=== PATIENT | male | born 1990 | race Caucasian/White ===

== ENCOUNTER 2017-10-18 21:59 | Emergency (ER) | payer BC ==
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
== END 2017-10-18 23:46 | disposition home or self-care (01) ==
LOC: MW.ED 21:59
DX: S06.0X9A Concussion with loss of consciousness of unspecified duration, initial encounter (principal); S80.811A Abrasion, right lower leg, initial encounter; V86.99XA Unspecified occupant of other special all-terrain or other off-road motor vehicle injured in nontraffic accident, initial encounter; M25.531 Pain in right wrist
CPT/HCPCS: 70450; 70450-26; 72125; 72125-26; 73100-26-RT; 73100-RT; 73590-26-RT; 73590-RT; 99284-25

== ENCOUNTER 2019-04-12 12:36 | Emergency (ER) | payer BC ==
--- NOTE | 2019-04-12 12:39 | EDM.PDOC ---
ED HPI GENERAL MEDICAL PROBLEM - General Stated Complaint: RIGHT HAND LACERATION Time Seen by Provider: 04/12/19 12:37 Source of Information: Reports: Patient History Limitations: Reports: No Limitations - History of Present Illness INITIAL COMMENTS - FREE TEXT/NARRATIVE: HISTORY AND PHYSICAL: History of present illness: Patient is a 28-year-old male who presents to the emergency room with complaints of a superficial laceration to his right palmar surface near the base of his thumb. He states he was not somewhat worried about the laceration but noted he needed a tetanus update. He offers no other concerns or complaints at this time. Review of systems: As per history of present illness and below otherwise all systems reviewed and negative. Past medical history: As per history of present illness and as reviewed below otherwise noncontributory. Surgical history: As per history of present illness and as reviewed below otherwise noncontributory. Social history: See social history for further information Family history: As per history of present illness and as reviewed below otherwise noncontributory. Physical exam: General: Well-developed and well-nourished 28-year-old male. Alert and oriented. Nontoxic appearing and in no acute distress. HEENT: Atraumatic, normocephalic, pupils equal and reactive bilaterally, negative for conjunctival pallor or scleral icterus, mucous membranes moist, trachea midline. No drooling or trismus noted. No meningeal signs. No hot potato voice noted. Lungs: Clear to auscultation, breath sounds equal bilaterally. Heart: S1S2, regular rate and rhythm without overt murmur Skin: Superficial 1 cm laceration to the palmar surface of his right hand near the base of his thumb. Otherwise skin is intact, warm, dry. No lesions or rashes noted. Extremities: Moves all extremities per self without difficulty or deficits, negative for cords or calf pain. Neurovascular unremarkable. Neuro: Awake, alert, oriented. Cranial nerves II through XII unremarkable. Cerebellum unremarkable. Motor and sensory unremarkable throughout. Exam nonfocal. Notes: Wound care was provided. Tetanus has been updated. Supportive care measures were reviewed and discussed. Voices understanding and is agreeable to plan of care. Denies any further questions or concerns at this time. Diagnostics: None Therapeutics: Tdap, wound care Prescription: None Impression: Laceration Plan: 1. Keep the area clean and dry. Continue to monitor for signs of infection. 2. Tylenol and/or ibuprofen as needed for pain management. 3. Please follow-up with your primary care provider in the next 1-2 days. Return to the ED as needed and as discussed. Definitive disposition and diagnosis as appropriate pending reevaluation and review of above. right hand Pain Score (Numeric/FACES): 1 - Related Data Allergies Allergy/AdvReac Type Severity Reaction Status Date / Time No Known Allergies Allergy Verified 03/29/18 18:32 Home Meds: Home Meds . [No Known Home Meds] 10/18/17 [History] Past Medical History - Past Health History Medical/Surgical History: Denies Medical/Surgical History Social & Family History - Family History Family Medical History: Noncontributory ED ROS GENERAL - Review of Systems Review Of Systems: Comprehensive ROS is negative, except as noted in HPI. ED EXAM, GENERAL - Physical Exam Exam: See Below (See dictation) Course - Vital Signs Last Recorded V/S: Last Vital Signs Temp 97.6 F 04/12/19 12:49 Pulse 63 04/12/19 12:49 Resp 16 04/12/19 12:49 BP 109/55 L 04/12/19 12:49 Pulse Ox 99 04/12/19 12:49 - Orders/Labs/Meds Orders: Active Orders 24 hr Category Date Time Status Communication Order [RC] STAT Care 04/12/19 12:52 Ordered Vaccines to be Administered [RC] PER UNIT ROUTINE Care 04/12/19 12:53 Ordered Bacitracin [Bacitracin Oint 1 GM] Med 04/12/19 12:53 Once 1 dose TOP ONETIME ONE Diphth,Pertuss(Acell),Tet Vac [Adacel] Med 04/12/19 12:52 Once 0.5 ml IM .ONCE ONE Departure - Departure Time of Disposition: 12:55 Disposition: Home, Self-Care 01 Clinical Impression: Laceration - Discharge Information Instructions: Laceration Care, Adult, [id number] Additional Instructions: The following information is given to patients seen in the emergency department who are being discharged to home. This information is to outline your options for follow-up care. We provide all patients seen in our emergency department with a follow-up referral. The need for follow-up, as well as the timing and circumstances, are variable depending upon the specifics of your emergency department visit. If you don't have a primary care physician on staff, we will provide you with a referral. We always advise you to contact your personal physician following an emergency department visit to inform them of the circumstance of the visit and for follow-up with them and/or the need for any referrals to a consulting specialist. The emergency department will also refer you to a specialist when appropriate. This referral assures that you have the opportunity for follow-up care with a specialist. All of these measure are taken in an effort to provide you with optimal care, which includes your follow-up. Under all circumstances we always encourage you to contact your private physician who remains a resource for coordinating your care. When calling for follow-up care, please make the office aware that this follow-up is from your recent emergency room visit. If for any reason you are refused follow-up, please contact the [facility] Emergency Department at and asked to speak to the emergency department charge nurse. [facility] [address] [place] [id number] [place] [address] 1. Keep the area clean and dry. Continue to monitor for signs of infection. 2. Tylenol and/or ibuprofen as needed for pain management. 3. Please follow-up with your primary care provider in the next 1-2 days. Return to the ED as needed and as discussed. - My Orders Last 24 Hours: My Active Orders 04/12/19 12:52 Communication Order [RC] STAT Diphth,Pertuss(Acell),Tet Vac [Adacel] 0.5 ml IM .ONCE ONE 04/12/19 12:53 Vaccines to be Administered [RC] PER UNIT ROUTINE Bacitracin [Bacitracin Oint 1 GM] 1 dose TOP ONETIME ONE - Assessment/Plan Last 24 Hours: My Active Orders 04/12/19 12:52 Communication Order [RC] STAT Diphth,Pertuss(Acell),Tet Vac [Adacel] 0.5 ml IM .ONCE ONE 04/12/19 12:53 Vaccines to be Administered [RC] PER UNIT ROUTINE Bacitracin [Bacitracin Oint 1 GM] 1 dose TOP ONETIME ONE
[2019-04-12] MEDS ORDERED: Diphtheria,Pertussis(Acell),Tetanus Vaccine 0.5 ML Syringe IM ONE (12:52)
[2019-04-12] MEDS ORDERED: Bacitracin Oint 1 GM U/D Packet TOP ONE (12:53)
== END 2019-04-12 13:23 | disposition home or self-care (01) ==
LOC: MW.ED 12:36
DX: S61.411A Laceration without foreign body of right hand, initial encounter (principal); Z23 Encounter for immunization; W26.8XXA Contact with other sharp object(s), not elsewhere classified, initial encounter
CPT/HCPCS: 90471; 90715; 99282

== ENCOUNTER 2019-07-28 19:59 | Emergency (ER) | payer BC ==
[2019-07-28] MEDS ORDERED: Atropine/Diphenoxylate 0.025-2.5 MG Tab PO ONE (20:41)
[2019-07-28] MEDS ORDERED: Sodium Chloride 0.9% 1,000 ML IV SCH (20:45)
--- NOTE | 2019-07-28 21:04 | CR ---
Chest: AP view of the chest was obtained. Comparison: No prior chest x-rays available. Heart size and mediastinum are normal. Lungs are clear with no acute parenchymal change. Bony structures are unremarkable. Impression: 1. Nothing acute is appreciated on AP chest x-ray. Diagnostic code #1 Study was dictated in MDT
[2019-07-28 21:32] LABS: BLOOD UREA NITROGEN,BUN 13 mg/dL (7.0-18.0); CARBON DIOXIDE,CO2 28.9 mmol/L (21.0-32.0); CHLORIDE,CL 104 mmol/L (98-107); GLUCOSE RANDOM 90 mg/dL (74-106); POTASSIUM,K 3.7 mmol/L (3.5-5.1); SODIUM,NA 141 mmol/L (136-148)
--- NOTE | 2019-07-28 22:16 | EDM.PDOC ---
ED HPI GENERAL MEDICAL PROBLEM - General Chief Complaint: Gastrointestinal Problem Stated Complaint: vomiting Time Seen by Provider: 07/28/19 19:59 Source of Information: Reports: Patient History Limitations: Reports: No Limitations - History of Present Illness INITIAL COMMENTS - FREE TEXT/NARRATIVE: Presents the emergency room chief complaint of multiple episodes of diarrhea after taking care of his grandfather with C. difficile. Onset: Today Duration: Day(s): Location: Reports: Abdomen Severity: Mild Improves with: Reports: None Worsens with: Reports: None Context: Reports: Sick Contact Associated Symptoms: Reports: No Other Symptoms - Related Data Allergies Allergy/AdvReac Type Severity Reaction Status Date / Time No Known Allergies Allergy Verified 07/28/19 20:24 Home Meds: Home Meds . [No Known Home Meds] 10/18/17 [History] Past Medical History - Past Health History Medical/Surgical History: Denies Medical/Surgical History Social & Family History - Family History Family Medical History: Noncontributory - Tobacco Use Smoking Status *Q: Never Smoker Second Hand Smoke Exposure: No - Caffeine Use Caffeine Use: Reports: Coffee, Energy Drinks, Soda - Recreational Drug Use Recreational Drug Use: No ED ROS GENERAL - Review of Systems Review Of Systems: See Below Constitutional: Reports: No Symptoms HEENT: Reports: No Symptoms Respiratory: Reports: No Symptoms Cardiovascular: Reports: No Symptoms Endocrine: Reports: No Symptoms GI/Abdominal: Reports: Diarrhea : Reports: No Symptoms Musculoskeletal: Reports: No Symptoms Skin: Reports: No Symptoms Neurological: Reports: No Symptoms Psychiatric: Reports: No Symptoms Hematologic/Lymphatic: Reports: No Symptoms Immunologic: Reports: No Symptoms ED EXAM, GI/ABD - Physical Exam Exam: See Below Exam Limited By: No Limitations General Appearance: Alert, WD/WN, No Apparent Distress Eyes: Bilateral: Normal Appearance Ears: Normal External Exam, Normal Canal, Hearing Grossly Normal, Normal TMs Nose: Normal Inspection Throat/Mouth: Normal Inspection, Normal Lips Head: Atraumatic, Normocephalic Neck: Normal Inspection, Supple, Non-Tender Respiratory/Chest: No Respiratory Distress, Lungs Clear Cardiovascular: Normal Peripheral Pulses, Regular Rate, Rhythm, No JVD, No Murmur, No Rub GI/Abdominal Exam: Normal Bowel Sounds, Soft, Non-Tender, No Distention, No Abnormal Bruit, No Mass (Male) Exam: No Hernia, Deferred Extremities: Normal Inspection, Normal Range of Motion, No Pedal Edema Neurological: Alert, Oriented, CN II-XII Intact Psychiatric: Normal Affect, Normal Mood Skin Exam: Warm, Dry, Intact Course - Vital Signs Text/Narrative:: 29-year-old male presents the emergency room with a chief complaint of possible C. difficile. Patient has been taking care of his grandfather who has C. difficile and has had several bouts of diarrhea. Is no fever no chills no abdominal pain. On exam patient was completely normal abdomen soft nontender extremities normal no guarding. She has normal CBC normal electrolytes. Patient was given Lomotil for possible diarrhea. C. difficile was ordered but the lab was unable to do it because the patient had firm stools. In the presence of formed stools doubt that this is C. difficile. We will arrange patient to be followed up with primary care facility clinic so they can order C. difficile at another time when the lab is able to do with a non-formed stool. Diagnosis on this patient will be possible gastroenteritis patient is stable Last Recorded V/S: Last Vital Signs Temp 96.7 F L 07/28/19 20:25 Pulse 92 07/28/19 20:25 Resp 18 07/28/19 20:25 BP 134/73 07/28/19 20:25 Pulse Ox 98 07/28/19 20:25 - Orders/Labs/Meds Orders: Active Orders 24 hr Category Date Time Status Sodium Chloride 0.9% [Normal Saline] 1,000 ml Med 07/28/19 20:45 Active IV ASDIRECTED Medication Orders Sodium Chloride (Normal Saline) 1,000 mls @ 1,000 mls/hr IV ASDIRECTED KALINA Last Admin: 07/28/19 20:58 Dose: 1,000 mls/hr Labs: Laboratory Tests 07/28/19 07/28/19 Range/Units 20:56 20:56 WBC 9.69 (4.0-11.0) K/uL RBC 5.40 (4.50-5.90) M/uL Hgb 16.0 (13.0-17.0) g/dL Hct 46.0 (38.0-50.0) % MCV 85.2 (80.0-98.0) fL MCH 29.6 (27.0-32.0) pg MCHC 34.8 (31.0-37.0) g/dL RDW Std Deviation 40.9 (28.0-62.0) fl RDW Coeff of Rachel 13 (11.0-15.0) % Plt Count 276 (150-400) K/uL MPV 9.30 (7.40-12.00) fL Nucleated RBC % 0.0 /100WBC Nucleated RBCs # 0 K/uL Sodium 141 (136-148) mmol/L Potassium 3.7 (3.5-5.1) mmol/L Chloride 104 (98-107) mmol/L Carbon Dioxide 28.9 (21.0-32.0) mmol/L BUN 13 (7.0-18.0) mg/dL Creatinine 0.9 (0.8-1.3) mg/dL Est Cr Clr Drug Dosing 111.19 mL/min Estimated GFR (MDRD) > 60.0 ml/min Glucose 90 (74-106) mg/dL Calcium 9.1 (8.5-10.1) mg/dL Total Bilirubin 0.2 (0.2-1.0) mg/dL AST 17 (15-37) IU/L ALT 45 (14-63) IU/L Alkaline Phosphatase 115 (46-116) U/L Total Protein 7.4 (6.4-8.2) g/dL Albumin 4.0 (3.4-5.0) g/dL Globulin 3.4 (2.6-4.0) g/dL Albumin/Globulin Ratio 1.2 (0.9-1.6) Meds: Medications Generic Name Dose Route Start Last Admin Trade Name Freq PRN Reason Stop Dose Admin Sodium Chloride 1,000 mls @ 1,000 mls/hr 07/28/19 20:45 07/28/19 20:58 Normal Saline IV 1,000 mls/hr ASDIRECTED KALINA Administration Discontinued Medications Generic Name Dose Route Start Last Admin Trade Name Freq PRN Reason Stop Dose Admin Diphenoxylate HCl/Atropine 2 tab 07/28/19 20:41 Lomotil 0.025-2.5 Mg PO 07/28/19 20:42 ONETIME ONE Departure - Departure Time of Disposition: 22:19 Disposition: Home, Self-Care 01 Condition: Good Clinical Impression: Gastroenteritis - Discharge Information Instructions: Viral Gastroenteritis, Adult, Chronic Diarrhea, Diarrhea, Adult, [id number] Referrals: PCP,None [Primary Care Provider] - Additional Instructions: Patient needs a follow-up with the clinic/if patient has more diarrhea he needs to make an appointment and go to the clinic as soon as possible so they can do the appropriate testing. Sepsis Event Note - Evaluation Sepsis Screening Result: No Definite Risk - Focused Exam Vital Signs: Vital Signs Temp Pulse Resp BP Pulse Ox 07/28/19 20:25 96.7 F L 92 18 134/73 98 Date Exam was Performed: 07/28/19 Time Exam was Performed: 22:11 - My Orders Last 24 Hours: My Active Orders 07/28/19 20:45 Sodium Chloride 0.9% [Normal Saline] 1,000 ml IV ASDIRECTED - Assessment/Plan Last 24 Hours: My Active Orders 07/28/19 20:45 Sodium Chloride 0.9% [Normal Saline] 1,000 ml IV ASDIRECTED
[2019-07-28] MEDS ORDERED: Loperamide 2 MG Cap PO ONE (22:26)
== END 2019-07-28 22:43 | disposition home or self-care (01) ==
LOC: MW.ED 19:59
DX: K52.9 Noninfective gastroenteritis and colitis, unspecified (principal)
CPT/HCPCS: 36415; 71045; 80053; 85027; 96360; 99284; A9270; J7030; 99283

== ENCOUNTER 2020-04-26 20:37 | Emergency (ER) | payer BC ==
[2020-04-26] MEDS ORDERED: Fluorescein 1 MG Ophth Strip EYELF ONE (20:43)
[2020-04-26] MEDS ORDERED: Proparacaine 0.5% Ophth Soln 15 ML Bottle EYELF STA (20:43)
[2020-04-26] MEDS ORDERED: Tetracaine HCl/PF 0.5% 4 ML Bottle ONE (20:50)
[2020-04-26] MEDS ORDERED: Tetracaine HCl/PF 0.5% 4 ML Bottle EYELF ONE (20:52)
--- NOTE | 2020-04-26 20:55 | EDM.PDOC ---
ED HPI GENERAL MEDICAL PROBLEM - General Chief Complaint: Eye Problems Stated Complaint: LT EYE PROBLEM Time Seen by Provider: 04/26/20 20:37 Source of Information: Reports: Patient History Limitations: Reports: No Limitations - History of Present Illness INITIAL COMMENTS - FREE TEXT/NARRATIVE: 29-year-old male presents with left eye pain and foreign body sensation since 5pm. He was putting some stuff into the ceiling and felt something in his eye as he was looking up. He was not wearing protective lenses. He admits to a sharp pain that is moderate, exacerbated with range of motion, constant, nonradiating, no alleviating factors. ROS: A 10-point review of systems, other than pertinent positives and negatives as stated per HPI, is otherwise negative Past medical history: No additional pertinent history Past Surgical history: No additional pertinent history Social history: No additional pertinent history Family history: No additional pertinent history PHYSICAL EXAM General: AOx4, GCS = 15, mild distress HEENT: dry mucous membrane, left eye injected, no teardrop pupil, no Robson sign with fluorescein staining. Fluorescein uptake at left eye 3 o'clock position and 9 o'clock position in the perilimbic region, no obvious foreign body noted, no afferent pupillary defect, symmetrical bilateral anterior chamber depth. Neck: supple, no meningismus, no Kernig or Brudzinski Cardiac: S1S2 RRR Respiratory: CTAB, no crackles or rales, no wheezing Abdomen: Soft, nontender, no rebound or guarding, nondistended, no pulsatile mass. Back: nontender Musculoskeletal: NVI distally, no deformity Neuro: No focal deficits, CN 2 - 12 WNL. L eye Pain Score (Numeric/FACES): 8 - Related Data Allergies Allergy/AdvReac Type Severity Reaction Status Date / Time No Known Allergies Allergy Verified 04/26/20 20:48 Home Meds: Home Meds Erythromycin Base [Erythromycin 0.5% Ophth Oint] 1 applic EYELF BID #1 tube 04/26/20 [Rx] Naproxen [Naprosyn] 500 mg PO Q12HR #30 tab 04/26/20 [Rx] Past Medical History - Past Health History Medical/Surgical History: Denies Medical/Surgical History Social & Family History - Family History Family Medical History: No Pertinent Family History - Caffeine Use Caffeine Use: Reports: Coffee, Energy Drinks, Soda ED ROS GENERAL - Review of Systems Review Of Systems: See Below (see dictation) ED EXAM GENERAL W FULL EYE - Physical Exam Exam: See Below (see dictation) Course - Vital Signs Last Recorded V/S: Last Vital Signs Temp 96.9 F 04/26/20 20:38 Pulse 88 04/26/20 22:10 Resp 17 04/26/20 20:38 BP 124/76 04/26/20 22:10 Pulse Ox 97 04/26/20 20:38 - Orders/Labs/Meds Meds: Medications Discontinued Medications Generic Name Dose Route Start Last Admin Trade Name Randolphq PRN Reason Stop Dose Admin Fluorescein Sodium 1 mg 04/26/20 20:43 04/26/20 20:54 Ful-Mary EYELF 04/26/20 20:44 1 mg ONETIME ONE Administration Tetracaine HCl Confirm 04/26/20 20:50 04/26/20 20:54 Tetracaine 0.5% Steri-Unit Radha Administered 04/26/20 20:51 Not Given Dose 4 ml .ROUTE .STK-MED ONE Tetracaine HCl 1 ml 04/26/20 20:52 04/26/20 20:54 Tetracaine 0.5% Steri-Unit Radha EYELF 04/26/20 20:53 1 ml ASDIRECTED ONE Administration - Re-Assessments/Exams Free Text/Narrative Re-Assessment/Exam: 04/26/20 20:44 After saline irrigation with Flex's lens, he feels like the foreign body is no longer there and he feels much improved. I advised the patient to return to the ER for reevaluation if symptoms worsened, including fever, worsening pain, or any other worrisome symptoms. I instructed the patient to follow up with opthamology within 2-3 days. MEDICAL DECISION MAKING: I reviewed the patients past medical records, lab and radiographic findings. I discussed the case with the patient. My differential diagnosis included: Corneal abrasion, ocular foreign body. My exam did not demonstrate Robson sign or asymmetrical depth to the anterior chamber or afferent pupillary defect or teardrop pupils, I do not suspect corneal laceration or corneal rupture. Departure - Departure Time of Disposition: 22:30 Disposition: Home, Self-Care 01 Condition: Good Clinical Impression: Corneal abrasion - Discharge Information Prescriptions: Erythromycin Base [Erythromycin 0.5% Ophth Oint] 1 applic EYELF BID #1 tube Naproxen [Naprosyn] 500 mg PO Q12HR #30 tab Instructions: Eye Foreign Body, [id number], Corneal Abrasion Referrals: Kyle Betancur MD [Primary Care Provider] - 3 Days Jose Giron MD [Ordering Only Provider] - 3 Days Forms: ED Department Discharge Additional Instructions: The need for follow-up, as well as the timing and circumstances, are variable depending upon the specifics of your emergency department visit. If you don't have a primary care physician on staff, we will provide you with a referral. We always advise you to contact your personal physician following an emergency department visit to inform them of the circumstance of the visit and for follow-up with them and/or the need for any referrals to a consulting specialist. The emergency department will also refer you to a specialist when appropriate. This referral assures that you have the opportunity for follow-up care with a specialist. All of these measure are taken in an effort to provide you with optimal care, which includes your follow-up. Under all circumstances we always encourage you to contact your private physician who remains a resource for coordinating your care. When calling for follow-up care, please make the office aware that this follow-up is from your recent emergency room visit. If for any reason you are refused follow-up, please contact the [facility] Emergency Department at and asked to speak to the emergency department charge nurse. If you do not have a primary care doctor, please follow up with the clinics below within 3-5 days. [facility] - Primary Care [address] [place] [address] [facility] [address] [place] [address] Sepsis Event Note (ED) - Focused Exam Vital Signs: Vital Signs Temp Pulse Resp BP Pulse Ox 04/26/20 22:10 88 124/76 04/26/20 20:38 96.9 F 80 17 108/76 97
== END 2020-04-26 22:10 | disposition home or self-care (01) ==
LOC: MW.ED 20:37
DX: S05.02XA Injury of conjunctiva and corneal abrasion without foreign body, left eye, initial encounter (principal); X58.XXXA Exposure to other specified factors, initial encounter
CPT/HCPCS: 99282; 99283

== ENCOUNTER 2020-06-18 14:28 | Emergency (ER) | payer BC ==
[2020-06-18] MEDS ORDERED: Tetracaine HCl/PF 0.5% 4 ML Bottle EYEBOTH ONE (15:04)
--- NOTE | 2020-06-18 15:54 | EDM.PDOC ---
ED HPI GENERAL MEDICAL PROBLEM - General Chief Complaint: Eye Problems Stated Complaint: DEBRIS IN LEFT EYE Time Seen by Provider: 06/18/20 14:30 Source of Information: Reports: Patient History Limitations: Reports: No Limitations - History of Present Illness INITIAL COMMENTS - FREE TEXT/NARRATIVE: HISTORY AND PHYSICAL: History of present illness: Patient is a 29-year-old male who presents to the ED today with concern of foreign body to his left eye that he noticed this morning. Patient states when he got to work this morning he began noticing his left eye was irritated. 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 Patient states that he went and looked in the mirror and saw a small pinpoint dot on his eye so came to the emergency room for further evaluation. Patient states that he does not wear contacts but he does have glasses. Patient denies taking any medications or any other symptoms or concerns. Patient denies fever, chills, chest pain, shortness of breath, or cough. Denies headache, neck stiff ness, change in vision, syncope, or near syncope. Denies nausea, vomiting, abdominal pain, diarrhea, constipation, or dysuria. Has not noted any blood in urine or stool. Patient has been eating and drinking appropriately. Review of systems: As per history of present illness and below otherwise all systems reviewed and negative. Past medical history: As per history of present illness and as reviewed below otherwise noncontributory. Surgical history: As per history of present illness and as reviewed below otherwise noncontributory. Social history: See social history for further information Family history: As per history of present illness and as reviewed below otherwise noncontributory. Physical exam: General: Patient is alert, oriented, and in no acute distress. Patient sitting comfortably on exam table. HEENT: Visual acuity intact. EOMS intact without pain or difficulty. Fluroscene stain performed with evidence of a pinpoint foreign body at the 7 o clock position of the iris without corneal abrasion/ulceration. Bilateral upper and lower lids everted without sign of foreign body. Negative for corneal opacity, hyphema, or hypopyon. Atraumatic, normocephalic, pupils equal and reactive bilaterally, negative for conjunctival pallor or scleral icterus, mucous m embranes moist, TMs normal bilaterally, throat clear, neck supple, nontender, trachea midline. No drooling or trismus noted. No meningeal signs. No hot potato voice noted. Lungs: Clear to auscultation, breath sounds equal bilaterally, chest nontender. Heart: S1S2, regular rate and rhythm without overt murmur Abdomen: Soft, nondistended, nontender. Negative for masses or hepatosplenomegaly. Negative for costovertebral tenderness. Pelvis: Stable nontender. Genitourinary: Deferred. Rectal: Deferred. Skin: Intact, warm, dry. No lesions or rashes noted. Extremities: Atraumatic, negative for cords or calf pain. Neurovascular unremarkable. Neuro: Awake, alert, oriented. Cranial nerves II through XII unremarkable. Cerebellum unremarkable. Motor and sensory unremarkable throughout. Exam nonfocal. Notes: Patient was irrigated with 250cc and a Flex lens. Foreign body is still present. I did try to use a q tip applicator to remove the foreign body but I was not able to remove it. I did call and speak to the research greenhouse supervisor investor relations director, Dr. Giron, who would request that patient be discharged from the ED and go immediately to his clinic after discharge. Symptoms are prompt return to the ED thoroughly discussed with patient. Discussed importance for going straight to Dr. Giron's clinic following discharge from the ED. Voices understanding and is agreeable to plan of care. Denies any further questions or concerns at this time. Diagnostics: Fluoroscene sol lamp Therapeutics: Placido lense irrigation, Tetracaine Prescription: Erythromycin ophthalmic Impression: Retained foreign body, left cornea Plan: 1. Go straight to Dr. Gil clinic following discharge from the ED. Return to the ED as needed and as discussed. Definitive disposition and diagnosis as appropriate pending reevaluation and review of above. Left Eye Pain Score (Numeric/FACES): 5 - Related Data Allergies Allergy/AdvReac Type Severity Reaction Status Date / Time No Known Allergies Allergy Verified 06/18/20 14:41 Home Meds: Home Meds Erythromycin Base [Erythromycin 0.5% Ophth Oint] 1 applic OP Q4H 5 Days #1 tube 06/18/20 [Rx] FLUoxetine HCl [Fluoxetine HCl] 20 mg PO 06/18/20 [History] Past Medical History - Past Health History Medical/Surgical History: Denies Medical/Surgical History Psychiatric History: Reports: Other (See Below) Other Psychiatric History: explosive anger disorder Social & Family History - Family History Family Medical History: No Pertinent Family History - Tobacco Use Tobacco Use Status *Q: Current Every Day Tobacco User Years of Tobacco use: 15 Packs/Tins Daily: 1 - Caffeine Use Caffeine Use: Reports: None - Recreational Drug Use Recreational Drug Use: No ED ROS GENERAL - Review of Systems Review Of Systems: Comprehensive ROS is negative, except as noted in HPI. ED EXAM GENERAL W FULL EYE - Physical Exam Exam: See Below (see dictation) Course - Vital Signs Last Recorded V/S: Last Vital Signs Temp 97.2 F 06/18/20 14:34 Pulse 73 06/18/20 14:34 Resp 18 06/18/20 14:34 BP 121/65 06/18/20 14:34 Pulse Ox 97 06/18/20 14:34 - Orders/Labs/Meds Meds: Medications Discontinued Medications Generic Name Dose Route Start Last Admin Trade Name Freq PRN Reason Stop Dose Admin Tetracaine HCl 2 ml 06/18/20 15:04 06/18/20 15:08 Tetracaine 0.5% Steri-Unit Radha EYEBOTH 06/18/20 15:05 2 drop ASDIRECTED ONE Administration Departure - Departure Time of Disposition: 15:52 Disposition: Home, Self-Care 01 Clinical Impression: Corneal foreign body Qualifiers: Encounter type: initial encounter Laterality: left Qualified Code(s): T15.02XA - Foreign body in cornea, left eye, initial encounter - Discharge Information Instructions: Eye Foreign Body, [id number] Referrals: PCP,None [Primary Care Provider] - Forms: ED Department Discharge Additional Instructions: The following information is given to patients seen in the emergency department who are being discharged to home. This information is to outline your options for follow-up care. We provide all patients seen in our emergency department with a follow-up referral. The need for follow-up, as well as the timing and circumstances, are variable depending upon the specifics of your emergency department visit. If you don't have a primary care physician on staff, we will provide you with a referral. We always advise you to contact your personal physician following an emergency department visit to inform them of the circumstance of the visit and for follow-up with them and/or the need for any referrals to a consulting specialist. The emergency department will also refer you to a specialist when appropriate. This referral assures that you have the opportunity for follow-up care with a specialist. All of these measure are taken in an effort to provide you with optimal care, which includes your follow-up. Under all circumstances we always encourage you to contact your private physician who remains a resource for coordinating your care. When calling for follow-up care, please make the office aware that this follow-up is from your recent emergency room visit. If for any reason you are refused follow-up, please contact the [facility] Emergency Department at and asked to speak to the emergency department charge nurse. [facility], Dr. Giron, Ophthalmology [address] [place] [address] 1. Go straight to Dr. Gil clinic following discharge from the ED. Return to the ED as needed and as discussed. Sepsis Event Note (ED) - Evaluation Sepsis Screening Result: No Definite Risk - Focused Exam Vital Signs: Vital Signs Temp Pulse Resp BP Pulse Ox 06/18/20 14:34 97.2 F 73 18 121/65 97
== END 2020-06-18 16:02 | disposition home or self-care (01) ==
LOC: MW.ED 14:28
DX: T15.02XA Foreign body in cornea, left eye, initial encounter (principal); Z72.0 Tobacco use
CPT/HCPCS: 99283

== ENCOUNTER 2021-11-01 19:17 | Emergency (ER) | payer BC | END 2021-11-01 19:39 | disposition home or self-care (01) | LOC: MW.ED 19:17 | DX: B35.6 Tinea cruris (principal) | CPT/HCPCS: 99282; 99283 ==

== ENCOUNTER 2022-02-26 15:02 | Emergency (ER) | payer BC ==
[2022-02-26] MEDS ORDERED: Dicyclomine 10 MG Cap PO ONE (15:37)
[2022-02-26] MEDS ORDERED: Ketorolac 30 MG/ML SDV IVPUSH ONE (15:37)
[2022-02-26] MEDS ORDERED: Sodium Chloride 0.9% 1,000 ML IV ONE (15:37)
[2022-02-26 16:38] LABS: BLOOD UREA NITROGEN,BUN 12 mg/dL (7.0-18.0); CARBON DIOXIDE,CO2 26.1 mmol/L (21.0-32.0); CHLORIDE,CL 96 mmol/L (98-107); GLUCOSE RANDOM 92 mg/dL (74-106); POTASSIUM,K 3.6 mmol/L (3.5-5.1); SODIUM,NA 133 mmol/L (136-148)
[2022-02-26 17:04] LABS: ESTIMATED GFR 91 mL/min (>60)
== END 2022-02-26 18:45 | disposition home or self-care (01) ==
LOC: MW.ED 15:02
DX: E86.0 Dehydration (principal); K52.9 Noninfective gastroenteritis and colitis, unspecified
CPT/HCPCS: 36415; 74176; 80053; 81001; 85025; 87045; 87046; 87328; 87329; 87449; 87899; 96361; 96374; 99284; A9270; J1885; J7030; 99283

== ENCOUNTER 2024-08-19 09:04 | Emergency (ER) | payer BC ==
[2024-08-19 10:26] LABS: BASOPHILS ABSOLUTE AUTO 0.03 K/uL (0.00-0.20); BASOPHILS PERCENT AUTO 0.3 % (0.0-1.0); EOSINOPHILS ABSOLUTE AUTO 0.06 K/uL (0.00-0.45); EOSINOPHILS PERCENT AUTO 0.5 % (0.0-6.0); HEMATOCRIT 47.3 % (42.0-52.0); HEMOGLOBIN 16.5 g/dL (14.0-18.0); IMMATURE GRAN ABSOLUTE AUTO 0.03 K/uL (0.00-0.05); IMMATURE GRAN PERCENT AUTO 0.3 % (0.0-0.4); LYMPHOCYTES ABSOLUTE AUTO 1.64 K/uL (1.00-4.80); LYMPHOCYTES PERCENT AUTO 13.8 % (24.0-44.0); MEAN CORPUSCULAR HEMOGLOBIN 29.1 pg (28.0-32.0); MEAN CORPUSCULAR HGB CONC 34.9 g/dL (32.0-36.0); MEAN CORPUSCULAR VOLUME 83.4 fL (83.0-99.0); MONOCYTES ABSOLUTE AUTO 0.63 K/uL (0.00-0.80); MONOCYTES PERCENT AUTO 5.3 % (0.0-8.0); NEUTROPHILS ABSOLUTE AUTO 9.49 K/uL (1.80-7.70); NEUTROPHILS PERCENT AUTO 79.8 % (41.0-71.0); PLATELET COUNT,PLT 245 K/uL (150-400); RED BLOOD CELL COUNT 5.67 M/uL (4.52-5.90); WHITE BLOOD CELL COUNT,WBC 11.88 K/uL (3.9-11.3)
[2024-08-19 10:28] LABS: APPEARANCE,URINE CLOUDY; BILIRUBIN,URINE NEGATIVE (NEGATIVE); GLUCOSE,URINE NEGATIVE (NEGATIVE); KETONES,URINE NEGATIVE (NEGATIVE); LEUKOCYTE ESTERASE,URINE SMALL (NEGATIVE); NITRITE,URINE POSITIVE (NEGATIVE); OCCULT BLOOD,URINE LARGE (NEGATIVE); PROTEIN,URINE >=300 mg/dL (NEGATIVE)
[2024-08-19 10:29] LABS: COLOR,URINE DARK YELLOW
[2024-08-19] MEDS: Ondansetron 4 MG/2 ML SDV IVPUSH ONE (10:31)
[2024-08-19] MEDS: Sodium Chloride 0.9% 1,000 ML IV ONE (10:31)
[2024-08-19] MEDS: Morphine 4 MG/ML Syringe IVPUSH ONE (10:32)
[2024-08-19 10:36] LABS: BACTERIA,URINE FEW (NEGATIVE); RBC,URINE TOO NUMEROUS TO CT (0-2/HPF); SQUAMOUS EPITHELIAL CELLS,UR FEW
[2024-08-19 10:37] LABS: MUCUS,URINE LIGHT (NONE-MOD)
[2024-08-19] MEDS: cefTRIAXone 1 GM in Sodium Chloride 0.9% 50 ML IV ONE (10:39)
[2024-08-19 10:44] LABS: A/G RATIO 1.2 (0.9-1.6); ALBUMIN 4.2 g/dL (3.4-5.0); BILIRUBIN TOTAL 0.7 mg/dL (0.2-1.0); CALCIUM 8.9 mg/dL (8.5-10.1); CARBON DIOXIDE,CO2 24.6 mmol/L (21.0-32.0); EST CRCL DRUG DOSING (CG) 102.12 mL/min; POTASSIUM,K 4.3 mmol/L (3.5-5.1); PROTEIN TOTAL,TP 7.6 g/dL (6.4-8.2)
[2024-08-19] MEDS: Tamsulosin 0.4 MG Cap.ER PO ONE (10:59)
[2024-08-19 11:57] LABS: C. TRACHOMATIS BY PCR NOT DETECTED; N. GONORRHOEAE BY PCR NOT DETECTED
== END 2024-08-19 12:19 | disposition home or self-care (01) ==
LOC: MW.ED 09:04
DX: N39.0 Urinary tract infection, site not specified (principal); R31.9 Hematuria, unspecified; Z75.8 Other problems related to medical facilities and other health care; Z79.899 Other long term (current) drug therapy
CPT/HCPCS: 36415; 74176; 80053; 81001; 85025; 87086; 87491; 87591; 96365; 96375; 99284; A9270; J0696; J2270; J2405; J7030; 87088; 87186; 99283